=== PATIENT | female | born 1945 | race Caucasian/White ===

== ENCOUNTER → 2016-11-21 | Day surgery (SDC) | payer MEDICARE, OTHER ==
[~2016-11-21] MED LIST: Glycopyrrolate 0.2 MG/ML SDV IVPUSH ONE; Lactated Ringers 1,000 ML IV SCH; Propofol 200 MG/20 ML SDV IV ONE
[2016-11-21 08:17] VITALS: BP 134/85
--- NOTE | 2016-11-21 09:21 | OR ---
DATE OF OPERATION: 11/21/2016 PREOPERATIVE DIAGNOSIS: LEFT UPPER QUADRANT PAIN. POSTOPERATIVE DIAGNOSIS: LEFT UPPER QUADRANT PAIN. SURGEON: Jorge Luis Ram MD PROCEDURE: ESOPHAGOGASTRODUODENOSCOPY WITH EMILIA. 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 COMPLICATIONS: None. SPECIMEN: EMILIA. FINDINGS: Normal full-length EGD. RECOMMENDATIONS: Medical followup with Regi Mathew. INDICATIONS: The patient is having some persistent abdominal pain in the left upper quadrant. She has been empirically treated with proton pump therapy without relief. Regi sent her for EGD. DESCRIPTION OF PROCEDURE: The patient was prepped and draped, placed in the left lateral decubitus position. A lubricated Olympus gastroscope inserted easily intubating the esophagus. Esophageal lining was benign in its entire course. The Z-line was crisp and sharp at 38 cm. No hernia. No distal esophagitis, stricturing, ulceration, or Ye's changes seen. Scope advanced into the stomach through the pylorus into the second portion of the duodenum and this in the duodenal bulb were completely unremarkable. The scope was brought back into the stomach and retroflexed. The upper fundus and cardia completely benign. A thorough evaluation of the rest of the gastric lining upon straightening showed no signs of any peptic ulcer disease, polyps, mass, ulceration or otherwise. CLOtest was obtained. Air was suctioned. Scope was removed without complication. SIVA/NICOLE /[id number]
== END ==
LOC: CC.SDS 06:54
PROVIDERS: ATTEND Family Medicine
DX: R10.12 Left upper quadrant pain (principal); Z79.899 Other long term (current) drug therapy; Z90.49 Acquired absence of other specified parts of digestive tract
CPT/HCPCS: 43235; 87081; J7120; 00740; J2704